=== PATIENT | female | born 1990 | race Caucasian/White ===

== ENCOUNTER 2016-07-31 20:13 | Emergency (ER) | payer MEDICAID ==
[~2016-07-31] VITALS: Ht 160 cm; Wt 59.0 kg
[2016-07-31 23:21] LABS: Urine Bilirubin Negative (Negative); Urine Blood Negative /uL (Negative); Urine Color Yellow (Yellow); Urine Glucose Normal (Normal); Urine Mucus FEW (None Seen); Urine Nitrite Negative (Negative); Urine RBC 8 /hpf (0 - 4); Urine Squamous Epithelial Cell MOD /hpf (<5); Urine Urobilinogen Normal (Negative); Urine pH 5.5 (5.0-8.0)
[2016-07-31 23:22] LABS: Urine Ketone 1+ (Negative)
[2016-08-01] MEDS ORDERED: cefTRIAXone 1GM/50ML D5W 50 ML IV ONE (01:15)
[2016-08-01] MEDS ORDERED: SODIUM CHLORIDE 0.9% 1,000 ML IV ONE (01:15)
[2016-08-01] MEDS ORDERED: HYDROcodone-ACET 5/325MG TAB PO ONE (01:15)
[2016-08-01 01:30] VITALS: BP 109/57
== END 2016-08-01 02:50 | disposition home or self-care (01) ==
LOC: EDBD 20:13 → ER 20:23
DX: F41.9 Anxiety disorder, unspecified (principal); R51 Headache; E86.0 Dehydration; N39.0 Urinary tract infection, site not specified
CPT/HCPCS: 70450; 81001; 81025; 96365; 99285; G0434

== ENCOUNTER 2019-03-16 15:54 | Emergency (ER) | payer SELFPAY ==
[~2019-03-16] VITALS: Ht 154.9 cm; Wt 55.8 kg
[2019-03-16 16:19] VITALS: BP 120/58
[2019-03-16 17:04] LABS: Urine Bacteria FEW /hpf (None Seen); Urine Blood 2+ /uL (Negative); Urine Mucus FEW (None Seen); Urine Specific Gravity 1.034 (1.001-1.035); Urine WBC <1 /hpf (0 - 5)
[2019-03-16 17:21] LABS: Basophils # (auto) 0 uL; Basophils % (auto) 0.3 % (0.0-2.0); Eosinophils # (auto) 0.1 uL; Hematocrit 39.4 % (36.0-46.0); Hemoglobin 13.8 g/dL (12.2-16.2); Lymphocytes # (auto) 0.9 uL; Lymphocytes % (auto) 16.1 % (10.0-50.0); Mean Corpuscular Hemoglobin 31.6 pg (28.0-32.0); Mean Corpuscular Volume 90.2 fL (80.0-100.0); Monocytes # (auto) 0.4 uL; Monocytes % (auto) 7.6 % (0.0-12.0); Neutrophils # (auto) 4.1 uL; Nucleated Red Blood Cells % 0.1 %; Platelet Count (auto) 128 10^3/uL (140-450); Red Blood Cells 4.36 10^6/uL (4.0-5.20); Red Cell Distribution Width 12.9 % (11.8-14.3); White Blood Cell 5.5 10^3/uL (4.4-10.8)
[2019-03-16 17:39] LABS: Albumin 4.2 g/dL (3.4-5.0); BUN/Creatinine Ratio 21.1; Calcium 8.9 mg/dL (8.5-10.1); Potassium 3.6 mmol/L (3.5-5.1)
[2019-03-16 17:43] LABS: Bilirubin, Total 0.6 mg/dL (0.2-1.0); Total Protein 8.2 g/dL (6.4-8.2)
== END 2019-03-16 20:02 | disposition left against medical advice (07) ==
LOC: ER 15:54
DX: O46.91 Antepartum hemorrhage, unspecified, first trimester (principal); Z3A.01 Less than 8 weeks gestation of pregnancy
CPT/HCPCS: 36415; 76801; 80053; 81001; 84702; 85025